=== PATIENT | male | born 1995 | race Caucasian/White ===

== ENCOUNTER 2018-12-23 10:39 | Emergency (ER) | payer OTHER ==
[~2018-12-23] VITALS: Ht 170.2 cm; Wt 72.6 kg
[2018-12-23 12:20] VITALS: BP 140/75
== END 2018-12-23 12:29 | disposition short-term general hospital (02) ==
LOC: ER 10:39
DX: S05.8X2A Other injuries of left eye and orbit, initial encounter (principal); H54.62 Unqualified visual loss, left eye, normal vision right eye; Z88.1 Allergy status to other antibiotic agents; W22.8XXA Striking against or struck by other objects, initial encounter; Y93.89 Activity, other specified; Y92.89 Other specified places as the place of occurrence of the external cause; Y99.8 Other external cause status